=== PATIENT | female | born 1980 | race Caucasian/White ===

== ENCOUNTER 2025-02-25 18:07 | Emergency (ER) | payer SELFPAY ==
[2025-02-25 18:20] VITALS: BP 123/74
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
== END 2025-02-25 18:30 | disposition home or self-care (01) ==
LOC: EMR 18:07
PROVIDERS: EMERGENCY PHYSICIAN Emergency Medicine
DX: S29.011A Strain of muscle and tendon of front wall of thorax, initial encounter (principal); V49.40XA Driver injured in collision with unspecified motor vehicles in traffic accident, initial encounter
CPT/HCPCS: 99284; 71046; 93005